=== PATIENT | female | born 2005 ===

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

== ENCOUNTER 2023-06-25 00:44 | Emergency (ER) | payer OTHER, MEDICAID, SELFPAY ==
[2023-06-25 00:52] VITALS: BP 122/78; PULSE 88; O2SAT 100
[2023-06-25 00:53] VITALS: BP 115/71; PULSE 88; RESP 18; TEMP 36.6; O2SAT 96; BMI 27.5
[2023-06-25 02:00] VITALS: BP 111/65; PULSE 82; RESP 16; TEMP 36.8; O2SAT 98
--- NOTE | 2023-06-25 02:48 | ED.HA ---
HPI - Headache General Chief Complaint: Headache Stated Complaint: Anxiety Attack Time Seen by Provider: 06/25/23 02:17 Source: patient and EMS Mode of arrival: EMS Limitations: no limitations History of Present Illness HPI Narrative: 18-year-old female history of panic attack and anxiety had panic attack yesterday patient think she is going through a lot of stress in her life, usually panic attack and up with headache patient has been having headache since yesterday that is in the back of her head going around her head headache is associated with nausea, photophobia, no neck stiffness, no fever, no chills, no vomiting. Patient declined SI or HI or hallucination. Related Data Previous Rx's Medication Instructions Recorded albuterol sulfate 90 mcg/actuation 2 inh inhalation Q6H PRN shortness 05/23/21 breath activated powder inhaler of breath or wheezing 30 days #1 ea cholecalciferol (vitamin D3) 25 25 mcg PO DAILY 90 days #90 caps 08/23/21 mcg (1,000 unit) capsule desogestrel 0.15 mg-ethinyl 1 tab PO DAILY #28 tabs 10/03/21 estradiol 0.03 mg tablet (Apri) metronidazole 500 mg tablet 500 mg PO BID 7 days #14 tabs 10/03/21 Allergies Allergy/AdvReac Type Severity Reaction Status Date / Time No Known Allergies Allergy Verified 06/25/23 00:51 Review of Systems Review of Systems: All other systems are reviewed and are negative Constitutional: Reports as per HPI and Reports no additional constitutional complaints Eyes: Reports as per HPI and Reports no additional eye complaints Reports system reviewed and no additional complaints, except as documented Cardiovascular: Reports as per HPI and Reports no additional cardiovascular complaints Respiratory: Reports as per HPI and Reports no additional respiratory complaints Gastrointestinal: Reports as per HPI and Reports no additional gastrointestinal complaints Genitourinary: Reports no additional female genitourinary complaints Musculoskeletal: Reports no additional musculoskeletal complaints Skin/Breast: Reports system reviewed and no additional complaints, except as docu Psychiatric: Reports no additional psychiatric complaints Endocrine: Reports no additional endocrine complaints Hematologic/Lymphatic: Reports no additional hematologic/lymphatic complaints Allergic/Immunologic: Reports no additional allergic/immunologic complaints Reports system reviewed and no additional complaints, except as documented and Reports Abnormal speech present PMFSH Past Medical History Medical History Adult acne Hypovitaminosis D Abnormal menses Elevated TSH Transaminitis Leukocytosis Pain in both feet Lumbar pain Overweight (BMI 25.0-29.9) Muscle spasm Sinusitis Gastritis Asthma Surgical History No pertinent past surgical history Family History Family History Mother No problems noted. Father No problems noted. Social History Social History Housing: Apartment Alcohol intake: never Patient Tobacco Use Status: Never used Tobacco Smoked in Last 30 Days: No e-Cigarette/Vaping Use: Never Used Second Hand Smoke Exposure: No Use of substances other than those prescribed or required for medical reasons: No Advance Directives: No Advance Directives Information Provided: Yes Patient : No service: No Current occupational status: employed Current occupational exposures/hazards: No Sexual orientation: Straight/Heterosexual Gender identity: Female Physical Exam Vital Signs: Vital Signs: Last Vital Signs Temp 98.2 F 06/25/23 02:00 Pulse 82 06/25/23 02:00 Resp 16 06/25/23 02:00 BP 111/65 06/25/23 02:00 Pulse Ox 98 06/25/23 02:00 O2 Del Method Room Air 06/25/23 02:00 BMI result Body Mass Index 27.5 Vital signs have been reviewed and appear to be correct. Blood pressure elevated. Heart rate normal. Respiratory rate normal. Temperature normal. Oxygen saturation normal. Appearance: Alert. Oriented X3. No acute distress. Head: Normal external exam. Normocephalic. Atraumatic. No [place] signs noted. No raccoon eyes noted Eyes: PERRLA. EOMI. Conjunctiva and sclera normal. Eyelids normal. ENT: TM's Normal. Pharynx normal. Uvula midline. Moist mucous membranes. No trismus noted. No drooling noted. No muffled voice noted. Neck: Normal inspection. Neck supple. FROM. No adenopathy. Thyroid Normal. No meningeal signs. No neck mass noted. CVS: Normal heart rate and rhythm. Heart sound normal. No murmurs noted. Pulses normal throughout. Respiratory: No respiratory distress. Painless inspiration. Breath sounds normal. No wheezes/rales/rhonchi noted. Chest nontender. No accessory muscle usage noted or decreased air movement noted. Abdomen: Soft and nontender. Bowel sounds normal in all 4 quadrants. No distention noted. No organomegaly noted. No visible injury noted. Back: No CVA tenderness. Full range of motion noted. Skin: Skin warm and dry. Normal skin color. Normal skin turgor. No rashes/lesions/lacerations noted. Extremities: No lower extremity edema. Extremities exhibit normal range of motion. Extremities nontender. Neuro: Oriented X 3. Cranial nerve exam: II-XII are grossly intact No motor deficit. No sensory deficit. Reflexes normal. Patient Orientation: Person, Place, Time and Situation, okay hygiene and grooming. Fair eye contact, attentive, no tics or tremors. Level of Consciousness: Awake, Appropriate and Alert Patient Behavior: Appropriate, Guarded, Cooperative and Anxious Mood Description: Constricted, Blunted and Apprehensive Affect Description: Constricted, Blunted and Apprehensive Patient Cognition Impaired: No Ability to Follow Directions: Excellent Speech Pattern: Clear, Appropriate and Spontaneous Speech, nonpressured, spontaneous with regular rate and rhythm, normal volume and prosody. No dysarthria. Memory Description: Intact, Immediate Intact and Short Term Intact Hallucinations: None Delusions: Not Present Thought Process: Intact Thought Content: positive for Intact, positive for Logical, denies Suicidal Ideation and denies Homicidal Ideation. Depressive Symptoms: Not present. Judgement and Insight: Limited but adequate. NIH Stroke Scale Time: 02:51 Level of Consciousness: Alert Level of Consciousness Questions: Answers both questions correctly Level of Consciousness Commands: Performs both tasks correctly Best Gaze: Normal Visual: No visual loss Facial Palsy: Normal Motor Arm (Right): No drift Motor Arm (Left): No drift Motor Leg (Right): No drift Motor Leg (Left): No drift Limb Ataxia: Absent Sensory: Normal Best Language: No aphasia Dysarthia: Normal Extinction and Inattention: No abnormality Score: 0 Course Course Course Narrative: Panic attack precipitated stress headache, patient feels better after Tylenol and Ativan was given in the ED, no SI or HI or hallucination. Medical Decision Making Differential Diagnosis Differential Diagnoses: The differential diagnosis associated with the presentation includes ( Anxiety, depression, stress headache, migraine, intracranial bleed.) Independent Interpretation I performed an independent interpretation of an: CT Scan ( head: No acute intracranial pathology.) Radiology Impression Discussion of test interpretation with radiology: I have reviewed the radiologist's reading. Discharge Plan Discharge Clinical Impression: Anxiety, Stress headache Patient Disposition: Home, Self-Care Instructions: Anxiety (ED) Prescriptions: No Action metronidazole 500 mg tablet 500 mg PO BID 7 Days Qty: 14 0RF desogestrel-ethinyl estradiol [Apri] 0.15-0.03 mg tablet 1 tab PO DAILY Qty: 28 5RF albuterol sulfate 90 mcg/actuation aerosol powdr breath activated 2 inh inhalation Q6H PRN (Reason: shortness of breath or wheezing) 30 Days Qty: 1 1RF cholecalciferol (vitamin D3) 25 mcg (1,000 unit) capsule 25 mcg PO DAILY 90 Days Qty: 90 1RF
[2023-06-25 03:53] VITALS: BP 99/55; PULSE 73; RESP 12; TEMP 36.6; O2SAT 97
== END 2023-06-25 05:22 | disposition home or self-care (01) ==
PROVIDERS: Emergency Provider Emergency Medicine
DX: R51.9 Headache, unspecified (principal); F41.1 Generalized anxiety disorder; F43.0 Acute stress reaction; R11.0 Nausea; H53.149 Visual discomfort, unspecified; Z79.899 Other long term (current) drug therapy
CPT/HCPCS: 70450; 99284

== ENCOUNTER 2023-12-13 19:56 | Emergency (ER) | payer OTHER, SELFPAY ==
[2023-12-13 21:14] VITALS: BP 112/77; PULSE 107; RESP 16; TEMP 36.9; O2SAT 97; BMI 27.3
[2023-12-13 21:54] LABS: IDNOW Serial# 55D5AD1C; Influenza A Positive (Negative); Influenza B2 Negative (Negative)
[2023-12-13 21:57] LABS: COVID-19 Test Negative (Negative); IDNOW Serial# 6674DD1D
--- NOTE | 2023-12-13 22:24 | ED_ITS ---
HPI - General Adult General Chief complaint: Upper Respiratory Symptoms Stated complaint: Flu like symptoms Time Seen by Provider: 12/13/23 22:17 Source: patient Mode of arrival: ambulatory Limitations: no limitations History of Present Illness HPI narrative: Patient comes to the emergency room complaining of dry cough, fever, body aches, nausea vomiting. Symptoms started approximately 5 days ago. Patient denies abdominal pain, no dysuria or hematuria. Related Data Previous Rx's Medication Instructions Recorded albuterol sulfate 90 mcg/actuation 2 inh inhalation Q6H PRN shortness 05/23/21 breath activated powder inhaler of breath or wheezing 30 days #1 ea cholecalciferol (vitamin D3) 25 25 mcg PO DAILY 90 days #90 caps 08/23/21 mcg (1,000 unit) capsule desogestrel 0.15 mg-ethinyl 1 tab PO DAILY #28 tabs 10/03/21 estradiol 0.03 mg tablet (Apri) metronidazole 500 mg tablet 500 mg PO BID 7 days #14 tabs 10/03/21 ibuprofen 600 mg tablet 600 mg PO TID PRN fever or pain 12/13/23 #14 tabs ondansetron HCl 4 mg tablet 4 mg PO Q6H PRN nausea and 12/13/23 vomiting #10 tabs Allergies Allergy/AdvReac Type Severity Reaction Status Date / Time No Known Allergies Allergy Verified 12/13/23 21:14 Review of Systems Review of Systems: Constitutional : No Weight loss, complaining of fever, chills, fatigue general malaise and diffuse body aches. ENT/Mouth : No Hearing loss, No Ear Pain, No Nasal Congestion, No Sinus Pain, No Hoarseness, No sore throat, No Rhinorrhea, No Swallowing Difficulty Eyes: No Eye Pain, No Swelling, No Redness, No Foreign Body, No Discharge, No Vision Changes Cardiovascular : No Chest Pain, No SOB, No Dyspnea on Exertion, No Orthopnea, No Edema, No Palpitations Respiratory : No Cough, No Sputum, No Wheezing, No Smoke Exposure, No Dyspnea Gastrointestinal : No Nausea, No Vomiting, No Diarrhea, No Constipation, No abdominal Pain, No Hematochezia, No Melena Genitourinary : no irregular bleeding, No Dysuria, No Urinary Frequency, No Hematuria, No Urinary Incontinence, No Urgency, No Flank Pain, No Urinary Flow Changes, No Hesitancy Musculoskeletal : No joint pain, No Myalgias, No Joint Swelling Skin : No Skin Lesions, No rash Neuro : No Weakness, No Numbness, No Paresthesias, No Loss of Consciousness, No Dizziness, complaining of Headache Psych : No Anxiety/Panic, No Depression, No SI/HI/AH/VH, No Social Issues, Heme/Lymph: No Bruising, No Bleeding,No Lymphadenopathy Endocrine : No Polyuria, No Polydipsia, No Temperature Intolerance [facility] Past Medical History Medical History Adult acne Hypovitaminosis D Abnormal menses Elevated TSH Transaminitis Leukocytosis Pain in both feet Lumbar pain Overweight (BMI 25.0-29.9) Muscle spasm Sinusitis Gastritis Asthma Surgical History No pertinent past surgical history Family History Family History Mother No problems noted. Father No problems noted. Social History Social History Housing: Apartment Alcohol intake: never Patient Tobacco Use Status: Never used Tobacco e-Cigarette/Vaping Use: Never Used Second Hand Smoke Exposure: No Advance Directives: No Advance Directives Information Provided: Yes service: No Current occupational status: employed Current occupational exposures/hazards: No Sexual orientation: Straight/Heterosexual Gender identity: Female Physical Exam ED Vital Signs: Vital Signs - 24 hr 12/13/23 21:14 12/13/23 22:26 12/13/23 22:26 Temperature 98.4 F Pulse Rate 107 H 84 102 H Respiratory Rate 16 Blood Pressure 112/77 103/63 101/65 Pulse Oximetry 97 Oxygen Delivery Method Room Air 12/13/23 22:28 Temperature Pulse Rate 106 H Respiratory Rate Blood Pressure 102/64 Pulse Oximetry Oxygen Delivery Method BMI result Body Mass Index 27.3 Const Other: Appearance: Alert. Oriented X3. No acute distress. Eyes: Pupils equal, round and reactive to light. ENT: Pharynx normal. Neck: Normal inspection. Neck supple. No lymph nodes noted. No crepitus CVS: Normal heart rate and rhythm. Pulses normal. Normal S1 and S2 Respiratory: No respiratory distress. Breath sounds normal. No Wheezing. No rales Abdomen: Soft and nontender. No rigidity. No distention. Skin: Skin warm and dry. Normal skin color. Normal skin turgor. Extremities: No lower extremity edema. No Lacerations. No Rash Neuro: Oriented X 3. No motor deficit. No sensory deficit. Moving all extremities. No slurred speech. CN 2 through 12 grossly intact Psych: calm, cooperative, normal affect Medical Decision Making Medical Decision Making MDM Narrative: -I discussed the labs with the patient, patient tested positive for influenza A -patient has been symptomatic for 5 days, unlikely that Tamiflu will be of any symptomatic relief for the patient, this was discussed with the patient. Agrees to treat symptomatically at home. -orthostatic vitals are negative Differential Diagnosis Differential Diagnoses: The differential diagnosis associated with the presentation includes (Influenza, COVID, RSV, viral illness) Lab Data Labs: Lab Results 12/13/23 Range/Units 21:22 COVID-19 ([facility]) Negative (Negative) COVID-19 Clin Com See Note Influenza Type A ([facility]) Positive A (Negative) Influenza Type B ([facility]) Negative (Negative) Influenza A & B Note See Note Discharge Plan Discharge Clinical Impression: Influenza A Patient Disposition: Home, Self-Care Instructions: Influenza (ED) Additional Instructions: Please follow-up with your primary care physician tomorrow. If you have any worsening or new symptoms, please return to the emergency room or call 911 Prescriptions: New ibuprofen 600 mg tablet 600 mg PO TID PRN (Reason: fever or pain) Qty: 14 0RF ondansetron HCl 4 mg tablet 4 mg PO Q6H PRN (Reason: nausea and vomiting) Qty: 10 0RF No Action metronidazole 500 mg tablet 500 mg PO BID 7 Days Qty: 14 0RF desogestrel-ethinyl estradiol [Apri] 0.15-0.03 mg tablet 1 tab PO DAILY Qty: 28 5RF albuterol sulfate 90 mcg/actuation aerosol powdr breath activated 2 inh inhalation Q6H PRN (Reason: shortness of breath or wheezing) 30 Days Qty: 1 1RF cholecalciferol (vitamin D3) 25 mcg (1,000 unit) capsule 25 mcg PO DAILY 90 Days Qty: 90 1RF Stand Alone Forms: Work/School Release
[2023-12-13 22:26] VITALS: BP 101/65; BP 103/63; PULSE 102; PULSE 84
[2023-12-13 22:28] VITALS: BP 102/64; PULSE 106
[2023-12-13 22:45] VITALS: BP 108/67; PULSE 82; RESP 18; TEMP 37.2; O2SAT 100
[2023-12-13] MEDS: Ondansetron ODT 4 MG TAB.RAPDIS TRANSLINGU (22:45)
== END 2023-12-13 22:46 | disposition home or self-care (01) ==
PROVIDERS: Emergency Provider Emergency Medicine
DX: J10.1 Influenza due to other identified influenza virus with other respiratory manifestations (principal); R05.9 Cough, unspecified; R50.9 Fever, unspecified; R11.2 Nausea with vomiting, unspecified
CPT/HCPCS: 87502; 87635; 99282; 99283

== ENCOUNTER 2024-01-27 02:45 | Emergency (ER) | payer OTHER, SELFPAY ==
--- NOTE | ~2024-01-27 | XR_ITS ---
EXAMINATION: XR CHEST CLINICAL INFORMATION: Cough COMPARISON: None available. TECHNIQUE: Frontal view of the chest was obtained. FINDINGS: Lung volumes are symmetric. No focal consolidation is seen. No evidence of pneumothorax or pleural effusion. There is suggestion of central peribronchial thickening. The cardiomediastinal contour is unremarkable. No acute osseous findings are seen. XR/XR chest 1V IMPRESSION: No focal consolidation. Suggestion of central peribronchial thickening which may reflect airways disease.
[2024-01-27 02:53] VITALS: BP 116/80; BP 126/70; PULSE 116; PULSE 131; RESP 18; TEMP 37.4; O2SAT 93; O2SAT 99; BMI 30.7
--- NOTE | 2024-01-27 03:13 | ECG_ITS ---
Test Reason : CHEST PAIN Blood Pressure : / mmHG Vent. Rate : 126 BPM Atrial Rate : 126 BPM P-R Int : 146 ms QRS Dur : 092 ms QT Int : 300 ms P-R-T Axes : 044 036 020 degrees QTc Int : 434 ms Sinus tachycardia Incomplete right bundle branch block Borderline ECG No previous ECGs available Referred By: Generic ED Physician Electronically Signed By:BETTY TEJADA MD
[2024-01-27 03:16] VITALS: PULSE 127; O2SAT 96
[2024-01-27 03:16] LABS: MANUAL DIFF FLAG NO
[2024-01-27 03:20] LABS: Basophils Absolute Auto 0.1 X10*3/uL (0.0-0.2); Basophils Percent Auto 0.4 % (0-2); Eosinophils Absolute Auto 0.2 X10*3/uL (0.0-0.4); Hematocrit 38.9 % (37.0-47.0); Hemoglobin 12.9 g/dl (12.0-16.0); Imm Gran Abs Auto 0.04 X10*3/uL (0.00-0.03); Imm Gran Pct Auto 0.3 % (0.0-0.4); Lymphocytes Absolute Auto 2.1 X10*3/uL (1.2-4.9); Lymphocytes Percent Auto 17.8 % (20-40); Mean Corpuscular HGB Conc 33.2 g/dl (31.0-35.0); Mean Corpuscular Hemoglobin 28.5 pg (27.0-33.0); Mean Corpuscular Volume 86.1 fL (80.0-98.0); Mean Platelet Volume 10.6 fL (9.4-12.3); Monocytes Absolute Auto 0.7 X10*3/uL (0.1-1.2); Monocytes Percent Auto 6.3 % (2-11); Neutrophils Absolute Auto 8.6 x10*3/uL (2.0-8.3); Neutrophils Percent Auto 73.2 % (45-73); Platelet Count 221 X10*3/uL (160-400); Red Blood Count 4.52 X10*6/uL (4.20-5.50); Red Cell Distribution Width 12.4 % (11.0-16.0); White Blood Count 11.8 X10*3/uL (4.8-10.8)
[2024-01-27 03:32] LABS: Alanine Aminotransferase 18 U/L (0-31); Albumin Level 4.4 g/dL (3.5-5.0); Alkaline Phosphatase 80 U/L (39-117); Anion Gap 17 (12-20); Aspartate Amino Transferase 17 U/L (5-31); Bilirubin Total 0.4 mg/dL (0.0-1.0); Blood Urea Nitrogen 10 mg/dL (9-16); Calcium 9.8 mg/dL (8.4-10.2); Carbon Dioxide 25 mmol/L (22-29); Chloride 106 mmol/L (96-108); Creatinine Clr Calc Pharmacy 99.3; Estimated Glomerular Filt Rate > 60; Glucose Random 108 mg/dL (60-115); Potassium 3.6 mmol/L (3.3-5.1); Sodium 144 mmol/L (135-145); Total Protein 7.8 g/dL (6.5-8.0)
[2024-01-27 03:57] LABS: Influenza A PCR NEGATIVE (Negative); Influenza B PCR NEGATIVE (Negative); Resp Syncy Virus RNA Qual PCR NEGATIVE (Negative); SARS COV2 PCR INHOUSE NEGATIVE (Negative)
[2024-01-27 05:59] VITALS: BP 114/67; PULSE 127; RESP 17; TEMP 37.3; O2SAT 97
[2024-01-27 06:00] VITALS: BP 114/71; PULSE 113; RESP 18; O2SAT 98
--- NOTE | 2024-01-27 06:31 | ED_ITS ---
HPI - URI/Sore Throat General Chief Complaint: Upper Respiratory Symptoms Stated Complaint: cough Time Seen by Provider: 01/27/24 06:29 Source: patient Mode of arrival: ambulatory Limitations: no limitations History of Present Illness HPI Narrative: Patient is a 19-year-old female with history of asthma presenting to the emergency department with complaint of chills, body aches, fatigue, cough occasionally productive of white sputum for the past week. Has been using Tylenol and ibuprofen with little relief. She was given nebulizer prior to arrival by EMS. She denies any known sick contacts. Does not check temperature at home with thermometer. MD elicited complaint: cough Onset (ago): week(s) Consistency: constant Description of mucous: other (white) Able to tolerate fluids by mouth: Yes Relieving factors: nothing Associated symptoms: chills, myalgias and shortness of breath Treatments prior to arrival: acetaminophen and ibuprofen Related Data Previous Rx's ?Medication ?Instructions ?Recorded albuterol sulfate 90 mcg/actuation 2 inh inhalation Q6H PRN shortness 05/23/21 breath activated powder inhaler of breath or wheezing 30 days #1 ea cholecalciferol (vitamin D3) 25 25 mcg PO DAILY 90 days #90 caps 08/23/21 mcg (1,000 unit) capsule desogestrel 0.15 mg-ethinyl 1 tab PO DAILY #28 tabs 10/03/21 estradiol 0.03 mg tablet (Apri) metronidazole 500 mg tablet 500 mg PO BID 7 days #14 tabs 10/03/21 ibuprofen 600 mg tablet 600 mg PO TID PRN fever or pain 12/13/23 #14 tabs ondansetron HCl 4 mg tablet 4 mg PO Q6H PRN nausea and 12/13/23 vomiting #10 tabs azithromycin 250 mg tablet See Rx Instructions PO .COMPLEX #6 01/27/24 tabs prednisone 20 mg tablet 40 mg (2 x 20 mg) PO DAILY #10 tabs 01/27/24 Allergies Allergy/AdvReac Type Severity Reaction Status Date / Time No Known Allergies Allergy Verified 01/27/24 02:55 Review of Systems 2 Review of Systems: As per HPI. Yes all other systems are reviewed and are negative Constitutional: Constitutional: Reports as per HPI [facility] Past Medical History Medical History Adult acne Hypovitaminosis D Abnormal menses Elevated TSH Transaminitis Leukocytosis Pain in both feet Lumbar pain Overweight (BMI 25.0-29.9) Muscle spasm Sinusitis Gastritis Asthma Surgical History No pertinent past surgical history Family History Family History Mother No problems noted. Father No problems noted. Social History Social History Housing: Apartment Alcohol intake: never Patient Tobacco Use Status: Never used Tobacco Smoked in Last 30 Days: No e-Cigarette/Vaping Use: Never Used Second Hand Smoke Exposure: No Use of substances other than those prescribed or required for medical reasons: No Advance Directives: No Advance Directives Information Provided: No Do you have a plan to hurt others: No Plan Patient : No service: No Current occupational status: employed Current occupational exposures/hazards: No Sexual orientation: Straight/Heterosexual Gender identity: Female Physical Exam 2 Vital Signs: Vital Signs: Last Vital Signs Temp 99.1 F 01/27/24 05:59 Pulse 113 H 01/27/24 06:00 Resp 18 01/27/24 06:00 BP 114/71 01/27/24 06:00 Pulse Ox 98 01/27/24 06:00 O2 Del Method Room Air 01/27/24 06:00 BMI result Body Mass Index 30.7 Vital signs have been reviewed and appear to be correct. Blood pressure normal. Heart rate tachycardic. Respiratory rate normal. Temperature normal. Oxygen saturation normal. Const: General: cooperative, healthy appearing and no acute distress O rientation/consciousness: oriented to person, oriented to place, oriented to time and patient oriented x3 Limitations: no limitations HEENT: Head: Yes normocephalic and Yes atraumatic Ears: external ears normal General nose exam: Normal external nose present Face and sinus: Yes face symmetric Mouth: oropharynx normal and moist mucous membranes Throat: Yes uvula midline Eyes: Pupils: Equal, round and reactive pupils present Neck: Neck: Yes normal visual inspection and Yes supple Resp: Effort & Inspection: normal respiratory effort and able to speak in complete sentences Auscultation: clear to auscultation bilaterally, no crackles, no rhonchi and no wheezes Cardio: Rate: regular rate Rhythm: regular rhythm Heart sounds: S1 normal heart sound present and S2 normal heart sound present Peripheral pulses: Peripheral pulses 2+ throughout GI: Palpation (GI): Soft to palpation and nontender Auscultation: n ormoactive bowel sounds : General: Yes no CVA tenderness Back/Spine/Pelvis: Back: no CVA tenderness Skin: General skin exam: elasticity normal and turgor normal Neuro: General: oriented to person, oriented to place, oriented to time, patient oriented x3, moves all extremities, no focal motor deficits and CN's II- XI intact bilaterally Cranial nerves: Yes Equal, round and reactive pupils present Cognition (Neuro): normal cognition Extrem: General: Yes full ROM, Yes no pedal edema and Yes no calf tenderness Psych: Mental Status: mental status grossly normal Affect: normal affect Thought process: Normal thought process present Medications Administered Discontinued Medications Generic Name Dose Route Start Last Admin Trade Name Freq PRN Reason Stop Dose Admin Sodium Chloride 1,000 mls @ 999 mls/hr 01/27/24 06:45 01/27/24 07:16 Ns IV 01/27/24 07:45 999 mls/hr .Q1H1M GRACE Administration Ketorolac Tromethamine 15 mg 01/27/24 07:48 01/27/24 07:57 Ketorolac Tromethamine 15 Mg/Ml Vial IVPUSH 01/27/24 07:49 15 mg ONCE ONE Administration Medical Decision Making Medical Decision Making [facility] Narrative: Patient is a 19-year-old female with history of asthma presenting to the emergency department with complaint of chills, body aches, fatigue, cough occasionally productive of white sputum for the past week. On exam patient is awake, A+Ox3, tachycardic, VS otherwise WNL, afebrile, normal neurological exam without focal deficits, physical exam findings as above. Given reported symptoms and physical exam findings, initial differential includes viral illness, COVID, flu, RSV, bronchitis, pneumonia, strep pharyngitis. Labs notable for slight leukocytosis, otherwise unremarkable. Viral serology negative. X-ray chest notable for central peribronchial thickening, likely due to viral illness. My interpretation is in agreement with the radiologist's interpretation. EKG shows sinus tachycardia likely due to dehydration. Plan: IV fluids and ketorolac Improvement in tachycardia with fluids, feel symptoms likely due to viral URI but given ongoing nature will treat for bronchitis with a course of azithromycin and prednisone. Patient reports she has adequate inhalers at home. Instructed patient to follow-up with primary care provider. Return precautions discussed at bedside. Patient verbalized understanding of and agreement with plan. Differential Diagnosis Differential Diagnoses: The differential diagnosis associated with the presentation includes As per [facility] Admission/Observation Consideration of admission/observation: Escalation of care including admission/observation considered Patient would have been admitted to the hospital had their work up had any findings where hospital admission was appropriate and their clinical presentation warranted hospital admission. Lab Data [facility] Lab Attestation statement: I reviewed the patient's lab results. As per [facility] 01/27/24 03:11 01/27/24 03:11 Labs: Lab Results 01/27/24 Range/Units 03:11 WBC 11.8 H (4.8-10.8) X10*3/uL RBC 4.52 (4.20-5.50) X10*6/uL Hgb 12.9 (12.0-16.0) g/dl Hct 38.9 (37.0-47.0) % MCV 86.1 (80.0-98.0) fL MCH 28.5 (27.0-33.0) pg MCHC 33.2 (31.0-35.0) g/dl RDW 12.4 (11.0-16.0) % Plt Count 221 (160-400) X10*3/uL MPV 10.6 (9.4-12.3) fL Immature Gran % (Auto) 0.3 (0.0-0.4) % Neut % (Auto) 73.2 H (45-73) % Lymph % (Auto) 17.8 L (20-40) % [place] % (Auto) 6.3 (2-11) % Eos % (Auto) 2.0 (0-4) % Baso % (Auto) 0.4 (0-2) % Lymph # (Auto) 2.1 (1.2-4.9) X10*3/uL [place] # (Auto) 0.7 (0.1-1.2) X10*3/uL Eos # (Auto) 0.2 (0.0-0.4) X10*3/uL Baso # (Auto) 0.1 (0.0-0.2) X10*3/uL Abs Immat Gran (auto) 0.04 H (0.00-0.03) X10*3/uL Absolute Neuts (auto) 8.6 H (2.0-8.3) x10*3/uL Absolute Nucleated RBC 0.000 (0.0-0.012) X10*3/uL Nucleated RBC % (auto) 0.0 (0.0-0.2) /100WBC Sodium 144 (135-145) mmol/L Potassium 3.6 (3.3-5.1) mmol/L Chloride 106 (96-108) mmol/L Carbon Dioxide 25 (22-29) mmol/L Anion Gap 17 (12-20) BUN 10 (9-16) mg/dL Creatinine 0.79 (0.5-1.4) mg/dL Estim Creat Clear Calc 99.3 Estimated GFR > 60 Random Glucose 108 (60-115) mg/dL Calcium 9.8 (8.4-10.2) mg/dL Total Bilirubin 0.4 (0.0-1.0) mg/dL AST 17 (5-31) U/L ALT 18 (0-31) U/L Alkaline Phosphatase 80 (39-117) U/L Total Protein 7.8 (6.5-8.0) g/dL Albumin 4.4 (3.5-5.0) g/dL Beta HCG, Quant < 2 mIU/mL Influenza Type A (PCR) NEGATIVE (Negative) Influenza Type B (PCR) NEGATIVE (Negative) RSV RNA Qual (PCR) NEGATIVE (Negative) SARS-CoV-2 RNA (RT-PCR) NEGATIVE (Negative) Independent Interpretation I performed an independent interpretation of an: EKG (Sinus tachycardia with incomplete RBBB, rate 126 beats per minute, normal ID interval and QTC, no prior for comparison) and Plain X-Ray Interpretation: X-ray chest notable for central peribronchial thickening, likely due to viral illness. Radiology Impression Discussion of test interpretation with radiology: I have reviewed the radiologist's reading. Radiologist Impression: XR/XR chest 1V IMPRESSION: No focal consolidation. Suggestion of central peribronchial thickening which may reflect airways disease. External Record Review External record reviewed: Inpatient record, Office record and Outpatient record Prescription Management I considered prescription management with: Antibiotic and Other Discharge Plan Discharge Clinical Impression: Bronchitis, Upper respiratory virus Patient Disposition: Home, Self-Care Instructions: Acute Bronchitis (ED), Viral Syndrome (ED) Additional Instructions: You were evaluated in the emergency department today for cough and shortness of breath. You are being treated for bronchitis with an antibiotic, please complete the full course as prescribed. You are also being prescribed a short course of steroids to decrease inflammation. Please follow-up with your primary care provider this week. Return to the emergency department if you develop worsening shortness of breath, difficulty breathing, chest pain, fever not improved with Tylenol or ibuprofen, or any other concerning symptoms. Prescriptions: New azithromycin 250 mg tablet See Rx Instructions .ROUTE .COMPLEX Qty: 6 0RF Rx Instructions: For 250 mg dose pack: take 500 mg today (day 1), then 250 mg for 4 days (days 2-5) prednisone 20 mg tablet 40 mg PO DAILY Qty: 10 0RF No Action metronidazole 500 mg tablet 500 mg PO BID 7 Days Qty: 14 0RF desogestrel-ethinyl estradiol [Apri] 0.15-0.03 mg tablet 1 tab PO DAILY Qty: 28 5RF ibuprofen 600 mg tablet 600 mg PO TID PRN (Reason: fever or pain) Qty: 14 0RF ondansetron HCl 4 mg tablet 4 mg PO Q6H PRN (Reason: nausea and vomiting) Qty: 10 0RF albuterol sulfate 90 mcg/actuation aerosol powdr breath activated 2 inh inhalation Q6H PRN (Reason: shortness of breath or wheezing) 30 Days Qty: 1 1RF cholecalciferol (vitamin D3) 25 mcg (1,000 unit) capsule 25 mcg PO DAILY 90 Days Qty: 90 1RF Stand Alone Forms: Work/School Release Print Language: Kazakh
[2024-01-27] MEDS: 0.9 % Sodium Chloride 1,000 ML 999 ML IV (07:16)
[2024-01-27 07:28] LABS: HCG Quantitative < 2 mIU/mL
[2024-01-27] MEDS: Ketorolac Tromethamine 15 MG/ML VIAL IVPUSH (07:57)
[2024-01-27 09:14] VITALS: BP 114/71; PULSE 113; RESP 18; TEMP 36.6; O2SAT 98
== END 2024-01-27 09:15 | disposition home or self-care (01) ==
PROVIDERS: Registered Nurse Emergency; Emergency Provider Emergency Medicine
DX: J40 Bronchitis, not specified as acute or chronic (principal); J06.9 Acute upper respiratory infection, unspecified; R05.9 Cough, unspecified; R07.89 Other chest pain; M79.10 Myalgia, unspecified site; R00.0 Tachycardia, unspecified; R10.2 Pelvic and perineal pain; R11.2 Nausea with vomiting, unspecified; Z11.52 Encounter for screening for COVID-19; Z20.822 Contact with and (suspected) exposure to COVID-19; Z79.899 Other long term (current) drug therapy
CPT/HCPCS: 0241U; 36415; 71045; 80053; 84702; 85025; 93005; 96361; 96374; 99284; 99285; J1885

== ENCOUNTER → 2024-01-27 03:13 | Outpatient (BNV) | payer OTHER, SELFPAY | PROVIDERS: Emergency Provider Emergency Medicine; Visit Provider Internal Medicine Cardiovascular Disease | DX: R07.9 Chest pain, unspecified (principal) | CPT/HCPCS: 93010 ==

== ENCOUNTER 2025-03-16 02:47 | Emergency (ER) | payer SELFPAY ==
--- NOTE | ~2025-03-16 | XR_ITS ---
CLINICAL HISTORY: SOB 1 view chest x-ray Comparison: CR/SR - XR CHEST 1V - 01/27/24 03:02 EDT Findings: The lungs are clear. Normal size heart. No acute fracture. IMPRESSION: 1. No acute findings. This document has been electronically signed by: Valentino Yun MD on 03/16/2025 04:34:30
[2025-03-16 02:49] VITALS: BP 117/81; PULSE 136; RESP 18; TEMP 36.9; O2SAT 97; BMI 29.4
[2025-03-16 02:59] VITALS: BP 116/72; PULSE 130; RESP 16; TEMP 37.6; O2SAT 99
[2025-03-16 03:08] LABS: IDNOW Serial# 6674DD1D; Strep A Nucleic Acid Negative (Negative)
--- NOTE | 2025-03-16 03:17 | ED.GENADULT ---
HPI - General Adult General Chief complaint: General Medical Stated complaint: diff breathing Time Seen by Provider: 03/16/25 03:14 Source: patient Mode of arrival: ambulatory Limitations: no limitations History of Present Illness ED Provider: DR. Booth HPI narrative: 20-year-old female with history of asthma presented to the ED for evaluation of subjective fever, body ache, fatigue, cough with clear sputum, shortness of breath, wheezing, sore throat, and wide patches on throat patient's symptoms started 2 days ago. Patient with known history of asthma never intubated or hospitalized for her asthma. Related Data Previous Rx's ?Medication ?Instructions ?Recorded albuterol sulfate 90 mcg/actuation 2 inh inhalation Q6H PRN shortness 05/23/21 breath activated powder inhaler of breath or wheezing 30 days #1 ea cholecalciferol (vitamin D3) 25 25 mcg PO DAILY 90 days #90 caps 08/23/21 mcg (1,000 unit) capsule desogestrel 0.15 mg-ethinyl 1 tab PO DAILY #28 tabs 10/03/21 estradiol 0.03 mg tablet (Apri) metronidazole 500 mg tablet 500 mg PO BID 7 days #14 tabs 10/03/21 ibuprofen 600 mg tablet 600 mg PO TID PRN fever or pain 12/13/23 #14 tabs ondansetron HCl 4 mg tablet 4 mg PO Q6H PRN nausea and 12/13/23 vomiting #10 tabs azithromycin 250 mg tablet See Rx Instructions PO .COMPLEX #6 01/27/24 tabs prednisone 20 mg tablet 40 mg (2 x 20 mg) PO DAILY #10 tabs 01/27/24 Allergies Allergy/AdvReac Type Severity Reaction Status Date / Time No Known Allergies Allergy Verified 03/16/25 02:51 Review of Systems Review of Systems: All other systems are reviewed and are negative Constitutional: Reports as per HPI and Reports no additional constitutional complaints Eyes: Reports as per HPI and Reports no additional eye complaints Reports system reviewed and no additional complaints, except as documented Cardiovascular: Reports as per HPI and Reports no additional cardiovascular complaints Respiratory: Reports as per HPI and Reports no additional respiratory complaints Gastrointestinal: Reports as per HPI and Reports no additional gastrointestinal complaints Genitourinary: Reports no additional female genitourinary complaints Musculoskeletal: Reports no additional musculoskeletal complaints Skin/Breast: Reports system reviewed and no additional complaints, except as docu Psychiatric: Reports no additional psychiatric complaints Endocrine: Reports no additional endocrine complaints Hematologic/Lymphatic: Reports no additional hematologic/lymphatic complaints Allergic/Immunologic: Reports no additional allergic/immunologic complaints Reports system reviewed and no additional complaints, except as documented and Reports Abnormal speech present [facility] Past Medical History Medical History Adult acne Hypovitaminosis D Abnormal menses Elevated TSH Transaminitis Leukocytosis Pain in both feet Lumbar pain Overweight (BMI 25.0-29.9) Muscle spasm Sinusitis Gastritis Asthma Surgical History No pertinent past surgical history Family History Family History Mother No problems noted. Father No problems noted. Social History Social History Housing: Apartment Alcohol intake: never Patient Tobacco Use Status: Never used Tobacco Smoked in Last 30 Days: No e-Cigarette/Vaping Use: Never Used Second Hand Smoke Exposure: No Use of substances other than those prescribed or required for medical reasons: No Advance Directives: No Advance Directives Information Provided: Yes Do you have a plan to hurt others: No Plan Patient : No service: No Current occupational status: employed Current occupational exposures/hazards: No Sexual orientation: Straight/Heterosexual Gender identity: Female Physical Exam ED Vital Signs: Vital Signs - 24 hr 03/16/25 02:49 03/16/25 02:59 03/16/25 04:37 Temperature 98.5 F 99.7 F Pulse Rate 136 H 130 H 110 H Respiratory Rate 18 16 16 Blood Pressure 117/81 116/72 Pulse Oximetry 97 99 Oxygen Delivery Method Room Air Room Air BMI result Body Mass Index 29.4 Vital signs have been reviewed and appear to be correct. Blood pressure elevated. Heart rate elevated. Respiratory rate normal. Temperature normal. Oxygen saturation normal. Appearance: Alert. Oriented X3. No acute distress. Head: Normal external exam. Normocephalic. Atraumatic. No [place] signs noted. No raccoon eyes noted Eyes: PERRLA. EOMI. Conjunctiva and sclera normal. Eyelids normal. ENT: TM's Normal. Pharynx normal. Uvula midline. Moist mucous membranes. No trismus noted. No drooling noted. No muffled voice noted. Neck: Normal inspection. Neck supple. FROM. No adenopathy. Thyroid Normal. No meningeal signs. No neck mass noted. CVS: Normal heart rate and rhythm. Heart sound normal. No murmurs noted. Pulses normal throughout. Respiratory: No respiratory distress. Painless inspiration. Breath sounds normal. No wheezes/rales/rhonchi noted. Chest nontender. No accessory muscle usage noted or decreased air movement noted. Abdomen: Soft and nontender. Bowel sounds normal in all 4 quadrants. No distention noted. No organomegaly noted. No visible injury noted. Back: No CVA tenderness. Full range of motion noted. Skin: Skin warm and dry. Normal skin color. Normal skin turgor. No rashes/lesions/lacerations noted. Extremities: No lower extremity edema. Extremities exhibit normal range of motion. Extremities nontender. Neuro: Oriented X 3. Cranial nerve exam: II-XII are grossly intact No motor deficit. No sensory deficit. Reflexes normal. Course Reevaluation(s) Reevaluation #1: Patient received 1 dose of prednisone orally, and 1 treatment of bronchodilator patient feels much better, stable vital signs. Patient is satting 99% on room air. Time: 05:32 Medications Administered Discontinued Medications Generic Name Dose Route Start Last Admin Trade Name Freq PRN Reason Stop Dose Admin Albuterol Sulfate 2.5 mg 03/16/25 04:32 03/16/25 04:36 Albuterol Sulfate (0.083%) 2.5 Mg/3 Ml Vial.Neb INHALE 03/16/25 04:33 2.5 mg ONCE ONE Administration Prednisone 40 mg 03/16/25 03:14 03/16/25 03:33 Prednisone 20 Mg Tablet PO 03/16/25 03:15 40 mg ONCE ONE Administration Medical Decision Making Differential Diagnosis Differential Diagnoses: The differential diagnosis associated with the presentation includes (Asthma exacerbation, pneumonia, pneumothorax, strep pharyngitis) Admission/Observation Consideration of admission/observation: Escalation of care including admission/observation considered Lab Data MDM Lab Attestation statement: I reviewed the patient's lab results. Labs: Lab Results 03/16/25 03/16/25 Range/Units 02:53 03:40 Monoscreen Negative (Negative) Influenza Type A (PCR) NEGATIVE (Negative) Influenza Type B (PCR) NEGATIVE (Negative) RSV RNA Qual (PCR) NEGATIVE (Negative) SARS-CoV-2 RNA (RT-PCR) NEGATIVE (Negative) S. pyogenes GrpA JOSSELYN Negative (Negative) Independent Interpretation I performed an independent interpretation of an: Plain X-Ray (Chest: No acute findings) Radiology Impression Discussion of test interpretation with radiology: I have reviewed the radiologist's reading. Discharge Plan Discharge Clinical Impression: Pharyngitis Patient Disposition: Home, Self-Care Instructions: Pharyngitis (ED) Prescriptions: No Action metronidazole 500 mg tablet 500 mg PO BID 7 Days Qty: 14 0RF desogestrel-ethinyl estradiol [Apri] 0.15-0.03 mg tablet 1 tab PO DAILY Qty: 28 5RF ibuprofen 600 mg tablet 600 mg PO TID PRN (Reason: fever or pain) Qty: 14 0RF ondansetron HCl 4 mg tablet 4 mg PO Q6H PRN (Reason: nausea and vomiting) Qty: 10 0RF azithromycin 250 mg tablet See Rx Instructions .ROUTE .COMPLEX Qty: 6 0RF Rx Instructions: For 250 mg dose pack: take 500 mg today (day 1), then 250 mg for 4 days (days 2-5) prednisone 20 mg tablet 40 mg PO DAILY Qty: 10 0RF albuterol sulfate 90 mcg/actuation aerosol powdr breath activated 2 inh inhalation Q6H PRN (Reason: shortness of breath or wheezing) 30 Days Qty: 1 1RF cholecalciferol (vitamin D3) 25 mcg (1,000 unit) capsule 25 mcg PO DAILY 90 Days Qty: 90 1RF Print Language: Lao
--- NOTE | 2025-03-16 03:18 | ECG_ITS ---
Test Reason : CHEST PAIN Blood Pressure : */* mmHG Vent. Rate : 116 BPM Atrial Rate : 116 BPM P-R Int : 132 ms QRS Dur : 90 ms QT Int : 324 ms P-R-T Axes : 41 24 20 degrees QTcB Int : 450 ms Sinus tachycardia Otherwise normal ECG When compared with ECG of 27-Jan-2024 03:17, No significant change was found Referred By: Raúl Booth Electronically Signed By: BETTY TEJADA MD
[2025-03-16 03:36] LABS: Resp Syncy Virus RNA Qual PCR NEGATIVE (Negative); SARS COV2 PCR INHOUSE NEGATIVE (Negative)
[2025-03-16] MEDS: Albuterol Sulfate (0.083%) 2.5 MG/3 ML VIAL.NEB INHALE (04:36)
[2025-03-16 04:37] VITALS: PULSE 110; RESP 16; O2SAT 100
[2025-03-16 05:55] VITALS: BP 120/78; PULSE 110; RESP 18; TEMP 37.1; O2SAT 100
== END 2025-03-16 05:56 | disposition home or self-care (01) ==
PROVIDERS: Emergency Provider Emergency Medicine
DX: J02.9 Acute pharyngitis, unspecified (principal); R07.89 Other chest pain; R00.0 Tachycardia, unspecified; R06.02 Shortness of breath; R50.9 Fever, unspecified; M79.10 Myalgia, unspecified site; Z03.818 Encounter for observation for suspected exposure to other biological agents ruled out; Z79.899 Other long term (current) drug therapy
CPT/HCPCS: 36415; 71045; 86308; 87637; 87651; 93005; 94640; 99284; 99285

== ENCOUNTER → 2025-03-16 03:14 | Outpatient (BNV) | payer OTHER, SELFPAY | PROVIDERS: Emergency Provider Emergency Medicine; Visit Provider Radiology Diagnostic Radiology | DX: R06.02 Shortness of breath (principal) | CPT/HCPCS: 71045 ==

== ENCOUNTER → 2025-03-16 03:18 | Outpatient (BNV) | payer OTHER, SELFPAY | PROVIDERS: Emergency Provider Emergency Medicine; Visit Provider Internal Medicine Cardiovascular Disease | DX: R00.0 Tachycardia, unspecified (principal) | CPT/HCPCS: 93010 ==

== ENCOUNTER 2025-05-31 16:40 | Emergency (ER) | payer SELFPAY ==
--- NOTE | ~2025-05-31 | XR_ITS ---
CLINICAL HISTORY: inverted, felt pop 3 view right ankle Comparison: None provided Findings: No acute fractures or dislocations. No significant loss of joint space, osteophytes, or erosions. No ankle effusion. No radiopaque foreign body. IMPRESSION: 1. No acute findings. This document has been electronically signed by: Yaritza Calix MD on 05/31/2025 18:45:58
[2025-05-31 17:00] VITALS: BP 122/62; PULSE 88; RESP 20; TEMP 36.6; O2SAT 96; BMI 29.3
[2025-05-31 17:04] VITALS: BP 117/84; PULSE 100; O2SAT 99
--- NOTE | 2025-05-31 19:07 | ED.GENADULT ---
HPI - General Adult General Chief complaint: Extremity Injury, Lower Stated complaint: R ankle pain s/p fall Time Seen by Provider: 05/31/25 18:56 Source: patient, RN notes reviewed and old records reviewed Mode of arrival: EMS Limitations: no limitations History of Present Illness ED Provider: Debra MEDINA narrative: 20-year-old female presents for evaluation of right ankle pain pain She reports that she was walking down the steps when she missed the last 2 steps. She has pain to the outside of her right ankle. She felt the popping sensation. She reports previous ankle fracture about 2 years ago she states her pain is 10/10 and she is unable to bear weight. She reports that she is unable to wiggle her toes denies any other injuries from the fall Related Data Previous Rx's ?Medication ?Instructions ?Recorded albuterol sulfate 90 mcg/actuation 2 inh inhalation Q6H PRN shortness 05/23/21 breath activated powder inhaler of breath or wheezing 30 days #1 ea cholecalciferol (vitamin D3) 25 25 mcg PO DAILY 90 days #90 caps 08/23/21 mcg (1,000 unit) capsule desogestrel 0.15 mg-ethinyl 1 tab PO DAILY #28 tabs 10/03/21 estradiol 0.03 mg tablet (Apri) metronidazole 500 mg tablet 500 mg PO BID 7 days #14 tabs 10/03/21 ibuprofen 600 mg tablet 600 mg PO TID PRN fever or pain 12/13/23 #14 tabs ondansetron HCl 4 mg tablet 4 mg PO Q6H PRN nausea and 12/13/23 vomiting #10 tabs azithromycin 250 mg tablet See Rx Instructions PO .COMPLEX #6 01/27/24 tabs prednisone 20 mg tablet 40 mg (2 x 20 mg) PO DAILY #10 tabs 01/27/24 Allergies Allergy/AdvReac Type Severity Reaction Status Date / Time No Known Allergies Allergy Verified 05/31/25 17:04 Review of Systems Constitutional: Constitutional: Denies body ache(s), Denies chills, Denies fever(s) and Denies headache(s) Eyes: Eyes: Denies blurry vision ENT: Denies vertigo, Denies dizziness and Denies headache(s) Cardiovascular: Cardiovascular: Denies syncope Musculoskeletal: Musculoskeletal: Reports arthralgias, Reports joint swelling and Reports limited range of motion Integumentary/Breasts: Skin/Breast: Denies rash Neurologic: Denies vertigo, Denies dizziness, Denies syncope and Denies headache(s) Psychiatric: Psychiatric: Denies anxiety PMFSH Past Medical History Medical History Adult acne Hypovitaminosis D Abnormal menses Elevated TSH Transaminitis Leukocytosis Pain in both feet Lumbar pain Overweight (BMI 25.0-29.9) Muscle spasm Sinusitis Gastritis Asthma Surgical History No pertinent past surgical history Family History Family History Mother No problems noted. Father No problems noted. Social History Social History Housing: Apartment Alcohol intake: never Patient Tobacco Use Status: Never used Tobacco Smoked in Last 30 Days: No e-Cigarette/Vaping Use: Never Used Second Hand Smoke Exposure: No Use of substances other than those prescribed or required for medical reasons: No Advance Directives: No Advance Directives Information Provided: No Do you have a plan to hurt others: No Plan Patient : No service: No Current occupational status: employed Current occupational exposures/hazards: No Sexual orientation: Straight/Heterosexual Gender identity: Female Physical Exam ED Vital Signs: Vital Signs - 24 hr 05/31/25 17:00 05/31/25 19:31 Temperature 97.9 F Pulse Rate 88 77 Respiratory Rate 20 16 Blood Pressure 122/62 104/57 L Pulse Oximetry 96 100 Oxygen Delivery Method Room Air Room Air BMI result Body Mass Index 29.3 Const General: healthy appearing, comfortable, no acute distress, alert and awake Nutritional Appearance: well nourished Orientation/consciousness: patient oriented x3 HENMT Head: Yes normocephalic and Yes atraumatic Throat: Yes posterior oropharynx normal Eyes Eyelids: Yes eyelids normal Conjunctivae: conjunctivae normal Sclerae: sclerae normal Corneas: corneas normal Pupils: Equal, round and reactive pupils present EOM: EOMs intact bilaterally Neck Neck: Yes full ROM Resp Effort & Inspection: normal respiratory effort, able to speak in complete sentences and not labored Skin General skin exam: elasticity normal Neuro General: patient oriented x3 Cranial nerves: Yes Equal, round and reactive pupils present and Yes Bilaterally intact EOM present Cognition (Neuro): normal cognition Extrem Other: there is mild bright lateral ankle edema, there is tenderness over the right lateral malleolus. No significant visual or palpable deformity. Medications Administered Discontinued Medications Generic Name Dose Route Start Last Admin Trade Name Freq PRN Reason Stop Dose Admin Ibuprofen 600 mg 05/31/25 19:05 05/31/25 19:33 Ibuprofen 600 Mg Tablet PO 05/31/25 19:06 600 mg ONCE ONE Administration Medical Decision Making Medical Decision Making MDM Narrative: 20-year-old female presents for evaluation of right ankle pain. She has tenderness with the right lateral malleolus, x-ray of the ankle is negative for fracture or dislocation. I have a low suspicion for Achilles tendon rupture, as there was no pain or tenderness in his area. Distal sensation and capillary refill is intact. Patient was offered an Aircast and crutches, she will be discharged with symptomatic care only. Differential Diagnosis Differential Diagnoses: The differential diagnosis associated with the presentation includes Ankle sprain Contusion Fracture Dislocation Independent Interpretation I performed an independent interpretation of an: Plain X-Ray ( no acute ankle fracture or dislocation) Radiology Impression Discussion of test interpretation with radiology: I have reviewed the radiologist's reading. Radiologist Impression: Findings: No acute fractures or dislocations. No significant loss of joint space, osteophytes, or erosions. No ankle effusion. No radiopaque foreign body. IMPRESSION: 1. No acute findings. This document has been electronically signed by: Yaritza Calix MD on 05/31/2025 18:45:58 Discharge Plan Discharge Clinical Impression: Acute right ankle pain Patient Disposition: Home, Self-Care Instructions: Ankle Sprain (ED) Additional Instructions: your x-ray was negative for fracture. Use ibuprofen/ Tylenol for pain. Apply ice to the swollen area every 4 hours for 10-15 minutes. You may use crutches as needed to get around. Elevate the leg above your heart while resting follow up with your primary doctor, return for new or worsening symptoms Prescriptions: No Action metronidazole 500 mg tablet 500 mg PO BID 7 Days Qty: 14 0RF desogestrel-ethinyl estradiol [Apri] 0.15-0.03 mg tablet 1 tab PO DAILY Qty: 28 5RF ibuprofen 600 mg tablet 600 mg PO TID PRN (Reason: fever or pain) Qty: 14 0RF ondansetron HCl 4 mg tablet 4 mg PO Q6H PRN (Reason: nausea and vomiting) Qty: 10 0RF azithromycin 250 mg tablet See Rx Instructions .ROUTE .COMPLEX Qty: 6 0RF Rx Instructions: For 250 mg dose pack: take 500 mg today (day 1), then 250 mg for 4 days (days 2-5) prednisone 20 mg tablet 40 mg PO DAILY Qty: 10 0RF albuterol sulfate 90 mcg/actuation aerosol powdr breath activated 2 inh inhalation Q6H PRN (Reason: shortness of breath or wheezing) 30 Days Qty: 1 1RF cholecalciferol (vitamin D3) 25 mcg (1,000 unit) capsule 25 mcg PO DAILY 90 Days Qty: 90 1RF Stand Alone Forms: Work/School Release Print Language: Kinyarwanda
[2025-05-31 19:31] VITALS: BP 104/57; PULSE 77; RESP 16; O2SAT 100
[2025-05-31 20:06] VITALS: BP 104/57; PULSE 77; RESP 16; TEMP 36.7; O2SAT 100
--- OUTSIDE RECORDS SUMMARY | 2025-05-31 21:41 | XMS_ITS | Clinical Summary ---
Author Organization [facility] Address [address] [place] [address] Phone Care Team Providers Care Washtub Worker Name Role Phone Pcp, Unknown Primary Care Provider Unavailabl e Allergies No known active allergies Medications ibuprofen (MOTRIN) 600 mg tablet (To-Go) Take 1 tablet by mouth every 6 hours as needed for pain. 12 tablet 07/08/2022 Active Social History Tobacco Use Types Packs/Day Years Used Date Smoking Tobacco: Never Smokeless Tobacco: Never Tobacco Cessation:Counseling Given: Not Answered Alcohol Use Standard Drinks/Week Comments Not Currently 0 (1 standard drink = 0.6 oz pur e alcohol) Education Answer Date Recorded Are you interested in more education? Not on karan e 01/12/2023 Are you concerned about learning? Not on file 01/12/2023 No 01/12/2023 No 01/12/2023 Digital Access Answer Date Recorded No 02/10/2023 No 02/10/2023 No 02/10/2023 Reliable internet access at home? Not on file 02/10/2023 Device with a working camera? Not on file Intimate Partner Violence Answer Date R ecorded Are you denied basic needs s uch as food, clothing, or medical care? No 07/25/2023 In the past 12 months have y ou been in a relationship with a person who hurts, threatens, or tries to control you? No 07/25/2023 Are you denied basic needs s uch as food, clothing, or medical care? No 07/25/2023 In the past 12 months have y ou been in a relationship with a person who hurts, threatens, or tries to control you? No 07/25/2023 Comments Unknown Sex and Gender Information Value Date Recorded Sex Assigned at Female 10/13/2022 7:20 PM EST Legal Sex Female 11:37 PM EDT Gender Identity Female 10/13/2022 7:20 PM EST Sexual Orientation Not on file Last Filed Vital Signs Vital Sign Reading Time Taken Comments Blood Pressure 123/74 07/25/2023 11:06 PM EST Pulse 105 07/25/2023 11:06 PM EST Temperature 36.7 C (98.1 F) 07/25/2023 11:06 PM EST Respiratory Rate 18 07/25/2023 11:06 PM EST Oxygen Saturation 100% 07/25/2023 11:06 PM EST Inhaled Oxygen Concentration - - Weight 68 kg (150 lb) 10/13/2022 7:15 PM EST Height 152.4 cm (5') 10/13/2022 7:15 PM EST Body Mass Index 29.29 10/13/2022 7:15 PM EST Plan of Treatment Health Maintenance Due Date Last Done Comments Adult Td,Tdap Booster 2003 DEPRESSION SCREENING 2015 SMOKING Hx and SMOKELESS TOB ACCO SCREENING 01/07/2016 HPV VACCINES (1 - 3-dose series) 2018 CHLAMYDIA SCREENING 2019 MENINGOCOCCAL VACCINES (B) ( 1 of 2 - Standard) 2019 HEPATITIS C SCREENING 2021 HIV ONE-TIME SCREENING (18-6 5 YEARS) 2021 PAP SMEAR 01/07/2024 INFLUENZA VACCINE (#1) 2025 COVID-19 VACCINE ( - 2023-2 5 season) 2025 HEPATITIS A VACCINES Aged Out No long er eligible based on patient's age to complete this topic HIB VACCINES Aged Out No longer eligi ble based on patient's age to complete this topic MENINGOCOCCAL VACCINES (ACWY) Aged Out No longer eligible based on patient's age to complete this topic PNEUMOCOCCAL VACCINES (0-49 years) Aged Out No longer eligible based on patient's age to complete this topic Medical Devices Not on file Insurance [employer] HMO POS EPO [facility] Care Teams Washtub Worker Relationship Specialty Start Date End Date Pcp, Unknown PCP - General 07/07/22 Additional Source Comments The information contained in this document represents components of the legal health record. It is not the complete legal health record.[facility]
== END 2025-05-31 20:08 | disposition home or self-care (01) ==
PROVIDERS: Emergency Provider Student in an Organized Health Care Education/Training Program
DX: M25.571 Pain in right ankle and joints of right foot (principal)
CPT/HCPCS: 73610; 99283; 99284

== ENCOUNTER → 2025-05-31 18:00 | Outpatient (BNV) | payer OTHER, SELFPAY | PROVIDERS: Visit Provider Specialist | DX: M25.571 Pain in right ankle and joints of right foot (principal); W19.XXXA Unspecified fall, initial encounter | CPT/HCPCS: 73610 ==